=== PATIENT | female | born 1955 ===

== ENCOUNTER 2020-03-18 05:46 | Observation (INO) ==
[2020-03-18] MEDS ORDERED: Lactated Ringers 1000 ml BAG 1,000 ML IV SCH (06:00)
[2020-03-18] MEDS ORDERED: Buffered Lidocaine 1% SYRIN 1 ml INTRADERM ONE ×2 (06:00→06:27)
[2020-03-18] MEDS ORDERED: ceFAZolin 2 GM PREMIX 2 GM/50 ML BAG ONE (06:27)
[2020-03-18] MEDS ORDERED: Midazolam 2 mg/2 ml VIAL 1 mg/ml 2 ml VIAL (2 mg) ONE (07:01)
[2020-03-18] MEDS ORDERED: fentaNYL 100 mcg/2 ml 50 MCG/ML VIAL ONE ×2 (07:01→07:29)
[2020-03-18] MEDS ORDERED: HYDROmorphone 1 MG/1 ML SYRINGE IV PRN (07:19)
[2020-03-18] MEDS ORDERED: diPHENhydraMINE IV 50 MG/ML 1 ml VIAL (BENADRYL) IV PRN ×2 (07:19→10:43)
[2020-03-18] MEDS ORDERED: Naloxone 0.4 mg VIAL 0.4 mg/ml 1 ml VIAL IV PRN (07:19)
[2020-03-18] MEDS ORDERED: Ondansetron 4 mg VIAL 2 MG/ML 2 ml VIAL IV PRN (07:19)
[2020-03-18] MEDS ORDERED: Lidocaine 2% PF 5 ML VIAL ONE (07:27)
[2020-03-18] MEDS ORDERED: EPHEDrine (Pressors) 50 MG/ML VIAL ONE (08:13)
[2020-03-18] MEDS ORDERED: Sterile Water for Inj 10 ML ONE (08:14)
[2020-03-18] MEDS ORDERED: Vancomycin 1,000 MG VIAL ONE (09:45)
[2020-03-18] MEDS ORDERED: diPHENhydraMINE 25 mg TAB PO PRN (10:43)
[2020-03-18] MEDS ORDERED: Lactulose 30 ml UDC PO PRN (10:43)
[2020-03-18] MEDS ORDERED: Magnesium Hydroxide LIQ 30 ML UDC PO PRN (10:43)
[2020-03-18] MEDS ORDERED: Ondansetron ODT 4 mg TAB 4 MG TAB PO PRN (10:43)
[2020-03-18] MEDS ORDERED: Morphine 2 MG/ML SYRINGE IV PRN (10:43)
[2020-03-18] MEDS ORDERED: Albuterol HFA INHALER 8 gm MDI INH PRN (10:56)
[2020-03-18] MEDS ORDERED: Albuterol/Ipratropium NEB.SOL (2.5/0.5 MG) 3 ML NEB.SOLN INH PRN (11:17)
[2020-03-18] MEDS: D5W 1/2 NS 1000 ml BAG 1,000 ML IV SCH ×2 (11:45→21:54)
[2020-03-18] MEDS: Ondansetron 4 mg VIAL 2 MG/ML 2 ml VIAL IV PRN ×2 (13:57→21:55)
[2020-03-18] MEDS: ceFAZolin 1 GM ADVAN 1 GM in NS 0.9% 50 ML 50 ML IVPB SCH (16:22)
[2020-03-18] MEDS: Magnesium Hydroxide LIQ 30 ML UDC PO SCH (20:38)
[2020-03-18] MEDS: Fluticasone NASAL SPRAY 50MCG 16 gm SPRAY BTL INTRANASAL SCH (20:40)
[2020-03-18] MEDS ORDERED: HYDROcodone/ACETAMIN 5/325 mg TAB PO PRN (22:46)
[2020-03-19] MEDS: ceFAZolin 1 GM ADVAN 1 GM in NS 0.9% 50 ML 50 ML IVPB SCH ×2 (00:10→07:55)
[2020-03-19] MEDS ORDERED: NS 0.9% 500 ml BAG 500 ML IV ONE (04:44)
[2020-03-19] MEDS: Ondansetron 4 mg VIAL 2 MG/ML 2 ml VIAL IV PRN (04:51)
[2020-03-19 06:07] LABS: Hematocrit 31 % (35-47); Hemoglobin 10.7 g/dL (12.0-16.0); Mean Platelet Volume 7.1 fL (7.4-10.4); Platelet Count 211 10^3/uL (150-450)
[2020-03-19 06:24] LABS: BUN/Creatinine Ratio 18.9 (8-20); Calcium 8.1 mg/dL (8.6-10.3); EGFR African American 95.6 (>60); Potassium 3.4 mmol/L (3.5-5.0)
[2020-03-19] MEDS: D5W 1/2 NS 1000 ml BAG 1,000 ML IV SCH ×2 (09:05→19:37)
[2020-03-19] MEDS: KCL 20 MEQ/100 ML IVPREMIX 20 MEQ/100 ML BAG IV SCH ×2 (09:05→15:12)
[2020-03-19] MEDS: Magnesium Hydroxide LIQ 30 ML UDC PO SCH ×2 (09:05→20:40)
[2020-03-19] MEDS: Vitamin THERAPEUTIC TAB PO SCH (09:06)
[2020-03-19] MEDS ORDERED: NS 0.9% 250 ml 250 ML IV ONE (09:28)
[2020-03-19] MEDS: Fluticasone NASAL SPRAY 50MCG 16 gm SPRAY BTL INTRANASAL SCH (20:39)
[2020-03-20 06:46] LABS: Hematocrit 29 % (35-47); Hemoglobin 10.1 g/dL (12.0-16.0); Mean Platelet Volume 7.2 fL (7.4-10.4); Platelet Count 194 10^3/uL (150-450)
[2020-03-20] MEDS: Magnesium Hydroxide LIQ 30 ML UDC PO SCH (08:45)
[2020-03-20] MEDS: Vitamin THERAPEUTIC TAB PO SCH (08:47)
[2020-03-20 11:06] VITALS: BP 110/65
[2020-03-21] MEDS ORDERED: Scopolamine PATCH Remove NOTE PATCH OFF ONE (23:00)
== END 2020-03-20 13:29 | disposition home or self-care (01) ==
LOC: OR 05:46 → SSU 11:39 → INTOOBSV 11:39
PROVIDERS: ADMIT Orthopaedic Surgery; ATTEND Orthopaedic Surgery